=== PATIENT | male | born 2000 | race African-American/Black ===

== ENCOUNTER 2019-12-16 14:11 | Emergency (ER) | payer MEDICAID ==
[~2019-12-16] VITALS: Ht 162.6 cm; Wt 67.7 kg
[2019-12-16] MEDS ORDERED: BACITRACIN 0.9 GM PACKET OINTMENT TP ONE (15:15)
[2019-12-16] MEDS ORDERED: PERTUSS(ACELL),DIPH,TET VAC/PF 0.5 ML VIAL IM ONE (15:15)
[2019-12-16] MEDS ORDERED: IBUPROFEN 400 MG TABLET PO ONE (15:15)
[2019-12-16 16:55] VITALS: BP 122/72
== END 2019-12-16 16:59 | disposition home or self-care (01) ==
LOC: EMS 14:18
DX: S60.311A Abrasion of right thumb, initial encounter (principal); S60.416A Abrasion of right little finger, initial encounter; J45.909 Unspecified asthma, uncomplicated; F12.90 Cannabis use, unspecified, uncomplicated; Z88.8 Allergy status to other drugs, medicaments and biological substances; V19.9XXA Pedal cyclist (driver) (passenger) injured in unspecified traffic accident, initial encounter; Y93.89 Activity, other specified; Y92.488 Other paved roadways as the place of occurrence of the external cause; Y99.8 Other external cause status
CPT/HCPCS: 90471; 90715